=== PATIENT | male | born 1975 | race Caucasian/White ===

== ENCOUNTER 2019-04-22 14:58 | Outpatient (CLI) | payer BC, SELFPAY ==
--- NOTE | ~2019-04-22 | MR_ITS ---
EXAMINATION: MR pituitary wo/w con DATE: 04/22/2019 16:40 INDICATION: Disorder of pituitary gland. TECHNIQUE: Magnetic resonance imaging (MRI) of the brain and brainstem was performed without and with 17 mL MultiHance intravenous contrast. Whole-brain sequences included sagittal T1-weighted FSE, axia l diffusion-weighted FS EPI, axial T2*-weighted GRE, axial T2-weighted FLAIR Propeller, and axial T2- weighted Propeller. Small tuzme-zy-ming sequences included sagittal and coronal T1-weighted FSE cente red at the pituitary. Postcontrast sequences included small [id number] coronal T1-weighted FSE in a time course and sagittal T1-weighted FSE and whole-brain axial T1-weighted FSE. Apparent diffusion coefficient (ADC) maps were created. COMPARISON: None. FINDINGS: The pituitary is normal in size with height of 6 mm. The infundibulum is at the midline. Th ere is no intracranial hemorrhage, acute infarction, or abnormal intracranial mass lesion. There are scattered areas of nonspecific increased T2-weighted signal intensity in the cerebral white matter, w hich is within normal limits for the patient's age. The ventricles are normal in size. There is mild mucosal thickening in the paranasal sinuses. The orbits are normal. There is a right mastoid effusion . IMPRESSION: 1. Normal aging brain. Normal pituitary. Reviewed, dictated and finalized at location [facility].
[2019-04-22 15:42] LABS: Estimated Glomerular Filt Rate > 60
== END 2019-04-22 14:59 | disposition home or self-care (01) ==
LOC: ANHIMG 14:59
PROVIDERS: PCP Internal Medicine; Visit Provider Internal Medicine
DX: E23.7 Disorder of pituitary gland, unspecified (principal)
CPT/HCPCS: 36415; 70553; A9577

== ENCOUNTER → 2019-09-15 07:51 | Outpatient (CLI) | payer BC, SELFPAY ==
--- NOTE | ~2019-09-15 | US_ITS ---
US scrotum doppler DATE: 09/15/2019 08:32 INDICATION: Testicular hypofunction. Gynecomastia. TECHNIQUE: Real-time and color flow imaging and Doppler analysis of the scrotal contents COMPARISON: None FINDINGS: The right testicle measures 4.0 x 1.5 x 2.0 cm. There are 3 small hyperechoic foci measurin g up to 2.9 mm maximal dimension. No suspicious right testicular mass lesion is noted. There is heterogeneous echotexture of the right testicle. There is vascular flow to the right testicl e. The left testicle measures 3.6 x 1.6 x 2.3 cm. No suspicious left testicular mass lesion is detected. There is heterogeneous echotexture of the left testicle. There is vascular flow to the left testicle. Left and right epididymis are unremarkable. No hydrocele. There are bilateral varicoceles. IMPRESSION: Bilateral varicoceles No suspicious testicular mass lesion or torsion Reviewed, dictated and finalized at [facility]. Reviewed, dictated and finalized at location [facility].
== END ==
PROVIDERS: Visit Provider Internal Medicine Endocrinology, Diabetes & Metabolism
DX: E29.1 Testicular hypofunction (principal); I86.1 Scrotal varices
CPT/HCPCS: 76870; 93976

== ENCOUNTER 2020-10-14 01:13 | Day surgery (SDC) | payer BC, SELFPAY ==
[2020-10-05 16:02] VITALS: BMI 29.9
--- NOTE | 2020-10-13 12:43 | PM.HPGS ---
History of Present Illness History of Present Illness Consent: Risks, benefits, and alternatives have been discussed and questions answered. Patient agrees to proceed with procedure. Chief complaint: ulcerative colitis K51.90 Narrative: Jared Layton is a 45 year old male with a history of ulcerative colitis. He has done well since his last colonoscopy 2 years ago. Review of Systems Review of Systems: All systems reviewed & are unremarkable except as noted in HPI and below PMFSH Past Medical History Medical History Hyperlipidemia Ulcerative colitis Social History Social History Smoking status: Current some day smoker Tobacco type: cigars Additional smoking assessment comments: smokes cigars once a week Alcohol intake: current Alcohol use details: rare-social Substance use type: does not use Living arrangements: with family Gender identity (if verbalized by the patient): Male Spiritual care concerns: No Meds Home Medications and Allergies Home Medications Medication Instructions Recorded Confirmed Type atorvastatin 40 mg PO DAILY 01/13/19 10/05/20 History cetirizine 10 mg PO DAILY 01/13/19 10/05/20 History folic acid 1 mg PO DAILY 01/13/19 10/05/20 History methotrexate sodium 2.5 mg PO DAILY 01/13/19 10/05/20 History mesalamine 400 mg capsule (with 1,200 mg PO BID #540 ea 09/02/20 10/05/20 Rx delayed release tablets inside) testosterone cypionate mg 10/05/20 History Allergies Allergy/AdvReac Type Severity Reaction Status Date / Time latex Allergy Severe WHELPS ON Verified 10/14/20 09:48 SKIN Exam Resp: Auscultation: clear to auscultation bilaterally Cardio: Rate: regular rate Rhythm: regular rhythm GI: GI Palp: Yes Soft to palpation and No Tenderness to palpation present (GI) Assessment and Plan Assessment and plan (1) Ulcerative colitis: Code(s): K51.90 - Ulcerative colitis, unspecified, without complications Status: Acute Assessment and Plan: Colonoscopy with possible biopsy or polypectomy or cautery or injection of substances.
[2020-10-14 09:49] VITALS: BP 137/94; PULSE 66; RESP 18; TEMP 36.3; O2SAT 100; BMI 29.2
[2020-10-14] MEDS: LACTATED RINGERS 1,000 ML 150 ML IV CONT (09:59)
--- NOTE | 2020-10-14 10:54 | WPDANESEPPF ---
Anes - Initial Pre Proc Eval Procedure: Operation Date: 10/14/20 10:30 Proposed Procedures p Colonoscopy - Fran Basilio MD Date/Time: 10/14/20 10:54 Surgeon: Fran Basilio MD Pre Op Diagnosis: ulcerative colitis K51.90 Patient Data Age: 45 Gender: M Height: 1.75 m Weight: 90 kg Last Vital Signs Temp 97.4 F L 10/14/20 09:49 Pulse 66 10/14/20 09:49 Resp 18 10/14/20 09:49 BP 137/94 H 10/14/20 09:49 Pulse Ox 100 10/14/20 09:49 Allergies Allergy/AdvReac Type Severity Reaction Status Date / Time latex Allergy Severe WHELPS ON Verified 10/14/20 09:48 SKIN Home Medications Medication Instructions Recorded Confirmed Type atorvastatin 40 mg PO DAILY 01/13/19 10/05/20 History cetirizine 10 mg PO DAILY 01/13/19 10/05/20 History folic acid 1 mg PO DAILY 01/13/19 10/05/20 History methotrexate sodium 2.5 mg PO DAILY 01/13/19 10/05/20 History mesalamine 400 mg capsule (with 1,200 mg PO BID #540 ea 09/02/20 10/05/20 Rx delayed release tablets inside) testosterone cypionate mg 10/05/20 History Patient hx anesthesia problems: none Family hx anesthesia problems: none PMFSH Past Medical History Medical History Hyperlipidemia Ulcerative colitis Social History Social History Smoking status: Current some day smoker Tobacco type: cigars Additional smoking assessment comments: smokes cigars once a week Alcohol intake: current Alcohol use details: rare-social Substance use type: does not use Living arrangements: with family Gender identity (if verbalized by the patient): Male Spiritual care concerns: No Anes - Eval Final PreProcedure Day of Procedure 10/14/20 10:54 Patient weight: normal Heart: regular rate and rhythm Lungs: clear to auscultation Airway: Mallampati scale class II Neurological: alert and oriented Last oral intake: >/= 8 hours ASA classification: II Emergent: no Anesthetic plan: proceed Anesthesia type and monitoring: general GIVS and standard monitoring Informed Consent: The patient's anesthetic plan and its attendant risks and benefits were discussed with the patient/family/POA. Questions were solicited and answers provided to the satisfaction of the patient/family/POA.
[2020-10-14 11:23] VITALS: BP 100/70; PULSE 57; RESP 20; O2SAT 99
[2020-10-14 11:33] VITALS: BP 112/79; PULSE 58; RESP 18; O2SAT 100
[2020-10-14 11:43] VITALS: BP 116/84; PULSE 58; RESP 20; O2SAT 100
== END 2020-10-14 12:02 | disposition home or self-care (01) ==
PROVIDERS: PCP Internal Medicine; Visit Provider Internal Medicine Gastroenterology
PROC: 0DJD8ZZ Inspection of Lower Intestinal Tract, Via Natural or Artificial Opening Endoscopic (ICD-10-PCS; CPT 45378; principal; 2020-10-14 10:30)
DX: K51.00 Ulcerative (chronic) pancolitis without complications (principal); E78.5 Hyperlipidemia, unspecified
CPT/HCPCS: 45380; 88305; J2704; J7120

== ENCOUNTER 2022-05-16 15:03 | Outpatient (CLI) | payer BC, SELFPAY ==
[2022-05-16 15:53] LABS: Hematocrit 45.3 % (42.0-52.0); Hemoglobin 14.9 g/dL (14.0-18.0); Mean Corpuscular HGB Conc 32.9 g/dl (32-36); Mean Corpuscular Hemoglobin 32.2 pg (26-34); Mean Corpuscular Volume 97.8 fl (80-100); Mean Platelet Volume 11.1 fl (7.4-10.4); Platelet Count Result 172 k/mm3 (150-375); Red Blood Count 4.63 M/mm3 (4.6-6.20); Red Cell Distribution Width 14.6 % (11.5-14.5); White Blood Count 4.1 K/mm3 (4.5-10.0)
[2022-05-16 16:08] LABS: Alanine Aminotransferase 33 U/L (6-50); Albumin Level 4.7 g/dL (3.5-5.1); Alkaline Phosphatase 54 U/L (38-126); Anion Gap 5 mmol/L (8-16); Aspartate Amino Transferase 28 U/L (17-59); Bilirubin,Total 0.7 mg/dL (0.2-1.3); Blood Urea Nitrogen 12 mg/dL (9-20); CRP < 0.5 mg/dL (<1.0); Calcium 8.5 mg/dL (8.4-10.2); Carbon Dioxide 29 mmol/L (22-30); Chloride 103 mmol/L (98-107); Estimated Glomerular Filt Rate > 60; Glucose 86 mg/dL (65-110); Potassium 3.8 mmol/L (3.4-5.0); Sodium 137 mmol/L (137-145)
[2022-05-16 16:37] LABS: Erythrocyte Sedimentation Rate 5 mm/hr (0-20)
[2022-05-16 17:31] LABS: Toxigenic C. Diff NEGATIVE (NEGATIVE)
[2022-05-23 22:17] LABS: Calprotectin, Stool <5 mcg/g
== END 2022-05-16 15:04 | disposition home or self-care (01) ==
LOC: ANHLAB 15:05
PROVIDERS: PCP Internal Medicine; Visit Provider Nurse Practitioner
DX: K51.90 Ulcerative colitis, unspecified, without complications (principal); R19.7 Diarrhea, unspecified
CPT/HCPCS: 36415; 80053; 83993; 85027; 85652; 86140; 87493

== ENCOUNTER 2022-11-22 00:29 | Day surgery (SDC) | payer BC, SELFPAY ==
[2022-11-09 14:43] VITALS: BMI 30.7
--- NOTE | 2022-11-21 15:04 | PM.HPGS ---
History of Present Illness History of Present Illness Consent: Risks, benefits, and alternatives have been discussed and questions answered. Patient agrees to proceed with procedure. Chief complaint: Ulcerative Colitis Narrative: Jared Layton is a 47 year old male Was here for surveillance for inflammatory bowel disease. He continues to do well.? Since I saw him last year he has had no flare-ups of his colitis.? He has 1 bowel movement per day and is usually formed.? He has had no blood in his stools.? He denies abdominal pain or cramping. No crypt abscesses were seen as have his colonoscopy about 4 years ago..? His last colonoscopy which was Two years ago also looked good.? There was visually no active colitis.? Also biopsies were all negative for active colitis at that time.? He continues to take mesalamine 1200 mg twice a day. Review of Systems Review of Systems: All systems reviewed & are unremarkable except as noted in HPI and below PMFSH Past Medical History Medical History Acute diarrhea Hyperlipidemia Ulcerative colitis Social History Social History Smoking status: Current some day smoker Tobacco type: cigars Additional smoking assessment comments: 1 cigar per week Alcohol intake: current Alcohol use details: rare occasion Substance use: never Substance use type: does not use Living arrangements: with family Gender identity (if verbalized by the patient): Male Spiritual care concerns: No Meds Home Medications and Allergies Home Medications Medication Instructions Recorded Confirmed Type atorvastatin 40 mg tablet 40 mg PO DAILY 01/13/19 11/22/22 History folic acid 1 mg tablet 1 mg PO DAILY 01/13/19 11/22/22 History methotrexate sodium 2.5 mg tablet 2.5 mg PO DAILY 01/13/19 11/22/22 History testosterone cypionate 200 mg/mL 200 mg subcut WEEKLY 10/05/20 11/22/22 History intramuscular oil cetirizine 5 mg tablet 5 mg PO DAILY 11/09/22 11/22/22 History fexofenadine 180 mg tablet 180 mg PO DAILY 11/09/22 11/22/22 History tofacitinib 11 mg tablet,extended 11 mg PO DAILY 11/09/22 11/22/22 History release 24 hr (Xeljanz XR) Allergies Allergy/AdvReac Type Severity Reaction Status Date / Time latex Allergy Severe WHELPS ON Verified 11/22/22 06:15 SKIN Exam Const: General: alert Orientation/consciousness: patient oriented x3 Resp: Auscultation: clear to auscultation bilaterally Cardio: Rhythm: regular rhythm GI: GI Palp: Yes Soft to palpation and No Tenderness to palpation present (GI) Neuro: General: patient oriented x3 Assessment and Plan Assessment and plan (1) Ulcerative colitis: Code(s): K51.90 - Ulcerative colitis, unspecified, without complications Status: Acute Assessment and Plan: Colonoscopy with possible biopsy or polypectomy or cautery or injection of substances.
[2022-11-22 06:16] VITALS: BP 138/88; PULSE 58; RESP 16; TEMP 36.1; O2SAT 100; BMI 30.2
[2022-11-22] MEDS: LACTATED RINGERS 1,000 ML 150 ML IV CONT (06:25)
--- NOTE | 2022-11-22 07:21 | WPDANESEPPF ---
Anes - Initial Pre Proc Eval Procedure: Operation Date: 11/22/22 07:30 Proposed Procedures p Colonoscopy - Fran Basilio MD Date/Time: 11/22/22 07:21 Surgeon: Fran Basilio MD Pre Op Diagnosis: Ulcerative Colitis Patient Data Age: 47 Gender: M Height: 1.75 m Weight: 92.7 kg Last Vital Signs Temp 97 F L 11/22/22 06:16 Pulse 58 L 11/22/22 06:16 Resp 16 11/22/22 06:16 BP 138/88 11/22/22 06:16 Pulse Ox 100 11/22/22 06:16 O2 Del Method Room Air 11/22/22 06:16 Allergies Allergy/AdvReac Type Severity Reaction Status Date / Time latex Allergy Severe WHELPS ON Verified 11/22/22 06:15 SKIN Home Medications Medication Instructions Recorded Confirmed Type atorvastatin 40 mg tablet 40 mg PO DAILY 01/13/19 11/22/22 History folic acid 1 mg tablet 1 mg PO DAILY 01/13/19 11/22/22 History methotrexate sodium 2.5 mg tablet 2.5 mg PO DAILY 01/13/19 11/22/22 History testosterone cypionate 200 mg/mL 200 mg subcut WEEKLY 10/05/20 11/22/22 History intramuscular oil cetirizine 5 mg tablet 5 mg PO DAILY 11/09/22 11/22/22 History fexofenadine 180 mg tablet 180 mg PO DAILY 11/09/22 11/22/22 History tofacitinib 11 mg tablet,extended 11 mg PO DAILY 11/09/22 11/22/22 History release 24 hr (Xeljanz XR) Patient hx anesthesia problems: none Family hx anesthesia problems: none Results Review: All pre-operative results and documents have been reviewed as part of the pre-operative evaluation. [facility] Past Medical History Medical History Acute diarrhea Hyperlipidemia Ulcerative colitis Social History Social History Smoking status: Current some day smoker Tobacco type: cigars Additional smoking assessment comments: 1 cigar per week Alcohol intake: current Alcohol use details: rare occasion Substance use: never Substance use type: does not use Living arrangements: with family Gender identity (if verbalized by the patient): Male Spiritual care concerns: No Anes - Eval Final PreProcedure Day of Procedure 11/22/22 07:21 Patient weight: obese Heart: regular rate and rhythm Lungs: clear to auscultation Airway: Mallampati scale class II Neurological: alert and oriented Last oral intake: >/= 8 hours ASA classification: II Emergent: no Anesthetic plan: proceed Anesthesia type and monitoring: general GIVS and standard monitoring Results Review: All pre-operative results and documents have been reviewed as part of the pre-operative evaluation. Informed Consent: The patient's anesthetic plan and its attendant risks and benefits were discussed with the patient/family/POA. Questions were solicited and answers provided to the satisfaction of the patient/family/POA.
[2022-11-22 07:56] VITALS: BP 89/67; PULSE 48; RESP 20; O2SAT 92
[2022-11-22 08:06] VITALS: BP 100/74; PULSE 50; RESP 20; O2SAT 93
[2022-11-22 08:16] VITALS: BP 111/81; PULSE 52; RESP 18; O2SAT 99
== END 2022-11-22 08:32 | disposition home or self-care (01) ==
PROVIDERS: PCP Internal Medicine; Visit Provider Internal Medicine Gastroenterology
PROC: 0DJD8ZZ Inspection of Lower Intestinal Tract, Via Natural or Artificial Opening Endoscopic (ICD-10-PCS; CPT 45378; principal; 2022-11-22 07:30)
DX: K51.90 Ulcerative colitis, unspecified, without complications (principal); D12.8 Benign neoplasm of rectum; E78.5 Hyperlipidemia, unspecified; Z87.891 Personal history of nicotine dependence
CPT/HCPCS: 45385; 45380; 88305; J2704; J7120

== ENCOUNTER 2023-08-27 09:52 | Outpatient (CLI) | payer BC, SELFPAY ==
--- NOTE | 2023-08-27 11:00 | NEURO_ITS ---
Impression: # Complains of right 5th finger discomfort. real [employer] job titles. # Mild right Carpal Tunnel Syndrome. # No ulnar neuropathy. # Normal needle/EMG exam. Nerve Conduction Studies Anti Sensory Summary Table Stim Site NR Peak (ms) P-T Amp (?V) Site1 Site2 Delta-P (ms) Dist (cm) Liborio (m/s) Right Median Anti Sensory (2-3nd Digit) Wrist 4.2 16.4 Wrist 2-3nd Digit 4.2 14.0 33 Wrist 4.5 12.3 Wrist 2-3nd Digit 4.2 14.0 33 Right Radial Anti Sensory (Base 1st Digit) Wrist 2.4 16.5 Wrist Base 1st Digit 2.4 0.0 Right Ulnar Anti Sensory (5th Digit) Wrist 2.6 51.9 Wrist 5th Digit 2.6 14.0 54 Motor Summary Table Stim Site NR Onset (ms) O-P Amp (mV) Site1 Site2 Delta-0 (ms) Dist (cm) Ilborio (m/s) Right Median Motor (Abd Poll Brev) Wrist 4.1 3.1 Elbow Wrist 6.1 31.0 51 Elbow 10.2 3.0 Right Ulnar Motor (Abd Dig Minimi) Wrist 2.7 6.1 A Elbow Wrist 5.7 32.0 56 A Elbow 8.4 5.2 F Wave Studies NR F-Lat (ms) L-R F-Lat (ms) Right Median (Mrkrs) (Abd Poll Brev) 32.22 Right Ulnar (Mrkrs) (Abd Dig Min) 31.64 EMG Side Muscle Nerve Root Ins Act Fibs Amp Dur Recrt Comment Right 1stDorInt Ulnar C8-T1 Nml Nml Nml Nml Nml Right Ext Indicis Radial (Post Int) C7-8 Nml Nml Nml Nml Nml Right Ext Digitorum Radial (Post Int) C7-8 Nml Nml Nml Nml Nml Right BrachioRad Radial C5-6 Nml Nml Nml Nml Nml Right PronatorTeres Median C6-7 Nml Nml Nml Nml Nml Right Abd Poll Brev Median C8-T1 Nml Nml Nml Nml Nml Right ABD Dig Min Ulnar C8-T1 Nml Nml Nml Nml Nml MTDD
== END 2023-08-27 09:53 | disposition home or self-care (01) ==
LOC: ANHNEURO 09:54
PROVIDERS: PCP Internal Medicine; Visit Provider Internal Medicine
DX: R20.0 Anesthesia of skin (principal); G56.01 Carpal tunnel syndrome, right upper limb
CPT/HCPCS: 95886; 95909